=== PATIENT | male | born 1955 | race Caucasian/White ===

== ENCOUNTER 2016-12-16 06:22 | Emergency (ER) | payer OTHER ==
[~2016-12-16] VITALS: Ht 175.3 cm; Wt 103.7 kg
[~2016-12-16 06:22] MED LIST: ASPIRIN E.C.81 M1 PO; Aspirin E.C. PO; Desyrel PO; HYDROCODON-ACE1 EAC7 PO; INDOCIN50 MG PO; LEVAQUIN750 MG PO; LOPRESSOR25 MG PO; Lipitor PO; METOPROLOL TART25 MG PO; METOPROLOL TART50 MG PO; NAPROSYN500 MG PO; NAPROXEN250 MG PO; NORCO 5/3251 TABLET PO; PAXIL PO; PAXIL20 MG PO; PERCOCET 5/31 TABLET PO; PREDNISONE20 MG PO; SERTRALINE HCL50 MG PO; TESSALON PERLE100 MG PO; TRAZODONE HCL50 MG PO; TYLENOL EXTRA500 MG PO; VALIUM5 MG PO; VENTOLIN HFA18 GM IH; ZOCOR PO
[2016-12-16 06:57] LABS: HEMATOCRIT 41.4 % (38.0-50.0); MCH 29.9 PG (29.0-34.0); MCHC 33.1 G/DL (30.0-36.0); MCV 90.4 FL (86-99); MEAN PLAT.VOLUME 8.6 uM^3 (9.0-12.4); PLATELET COUNT 134 K/uL (156-360); RBC DIS.WIDTH-CV 13.7 % (11.8-14.6); RBC DIS.WIDTH-SD 45.6 % (39-53); RED BLOOD COUNT 4.58 M/uL (4.00-5.50); WHITE BLOOD COUNT 8.8 K/uL (4.1-10.2)
[2016-12-16 07:40] LABS: TROP-I INTERPRETATION NEGATIVE; TROPONIN-I < 0.01 ng/mL (0.0-0.30)
[2016-12-16 07:48] LABS: ANION GAP 8 MEQ/L (2-14); CHLORIDE 100 MEQ/L (99-109); SAMPLE HEMOLYSIS CHECK 0; SAMPLE ICTERIC CHECK 0; SAMPLE LIPEMIA CHECK 0; SODIUM 137 MEQ/L (136-147)
[2016-12-16 07:53] LABS: GFR ESTIMATE (CALCULATED) > 59 mL/min/; GLUCOSE 115 mg/dL (70-99); UREA NITROGEN (BUN) 15 mg/dL (9-23)
[2016-12-16] MEDS ORDERED: PROAIR HFA8.5 GM IH (08:44)
[2016-12-16] MEDS ORDERED: ZITHROMAX Z-PA250 MG PO (08:44)
[2016-12-16 08:56] VITALS: BP 133/88
== END 2016-12-16 09:00 | disposition home or self-care (01) ==
LOC: EME 06:22
DX: J20.9 Acute bronchitis, unspecified (principal); R07.89 Other chest pain; I10 Essential (primary) hypertension; I25.2 Old myocardial infarction; E78.5 Hyperlipidemia, unspecified; F32.9 Major depressive disorder, single episode, unspecified; Z87.891 Personal history of nicotine dependence
CPT/HCPCS: 71020; 80048; 84484; 85027; 93005; 99281; 99284